=== PATIENT | male | born 1950 | race Caucasian/White ===

== ENCOUNTER 2019-06-26 11:13 | Inpatient (IN) | payer BC, OTHER, SELFPAY ==
[~2019-06-26] VITALS: Ht 172.7 cm; Wt 94.9 kg
[2019-06-26 11:30] VITALS: Ht 172.7 cm; Wt 94.9 kg
[2019-06-26 12:14] LABS: BASOPHIL % 0.3 % (0-2); PLATELET COUNT 217 x10^3mcL (130-400); RED CELL DISTRIBUTION WIDTH 13.2 % (11.5-14.5)
[2019-06-26 12:21] LABS: ALBUMIN 3.9 g/dL (3.4-5.0); ALKALINE PHOSPHATASE 88 U/L (46-116); ALT/SGPT 52 U/L (16-63); AST/SGOT 39 U/L (15-37); BILIRUBIN TOTAL 0.6 mg/dL (0.20-1.00); C REACTIVE PROTEIN 0.4 mg/dL (<=0.9); CALCIUM 8.6 mg/dL (8.5-10.1); CARBON DIOXIDE 33.5 mmol/L (21-32); CHLORIDE SERUM 104 mmol/L (98-107); CREATININE SERUM 0.9 mg/dL (0.7-1.3); GFR1 > 60 mL/min; GLUCOSE SERUM 113 mg/dL (74-106); LACTIC DEHYDROGENASE (LDH) 226 U/L (100-190); SODIUM SERUM 143 mmol/L (136-145); TOTAL PROTEIN, SERUM 6.5 g/dL (6.4-8.2)
[2019-06-26 12:25] LABS: POTASSIUM SERUM 2.9 mmol/L (3.5-5.1)
[2019-06-26 13:36] VITALS: BP 138/81
[2019-06-26 13:53] LABS: microscopic required? NO
[2019-06-26] MEDS ORDERED: AMLODIPINE BESYL5 M2 PO (13:56)
[2019-06-26] MEDS ORDERED: ATORVASTATIN CA20 M1 GT (13:58)
[2019-06-26] MEDS ORDERED: ASPIR 8181 MG PO (13:58)
[2019-06-26] MEDS ORDERED: ALLERGY RELIE15.8 ML (14:00)
[2019-06-26 14:05] LABS: UA SPECIFIC GRAVITY 1.015 (1.005-1.035); urine erythrocyte NEGATIVE (NEGATIVE)
[2019-06-26 14:19] LABS: MAGNESIUM 2.4 mg/dL (1.8-2.4); PHOSPHOROUS 2.8 mg/dL (2.5-4.9)
[2019-06-26 14:25] LABS: CHOLESTEROL/HDL RATIO 4.9
[2019-06-26 15:01] VITALS: BP 138/75
[2019-06-26 17:32] VITALS: BP 133/72
[2019-06-26 21:01] VITALS: BP 129/78
[2019-06-27 06:30] VITALS: BP 131/78
[2019-06-27 07:07] LABS: BASOPHIL % 0.3 % (0-2); PLATELET COUNT 182 x10^3mcL (130-400); RED CELL DISTRIBUTION WIDTH 13.2 % (11.5-14.5)
[2019-06-27 08:14] VITALS: BP 122/71
[2019-06-27 08:20] LABS: CALCIUM 8.1 mg/dL (8.5-10.1); CARBON DIOXIDE 28.9 mmol/L (21-32); CHLORIDE SERUM 105 mmol/L (98-107); CREATININE SERUM 0.8 mg/dL (0.7-1.3); GFR1 > 60 mL/min; GLUCOSE SERUM 113 mg/dL (74-106); POTASSIUM SERUM 3.1 mmol/L (3.5-5.1); SODIUM SERUM 144 mmol/L (136-145)
[2019-06-27 12:56] VITALS: BP 132/84
[2019-06-27 17:43] VITALS: BP 135/67
[2019-06-27 20:40] VITALS: BP 145/88
[2019-06-28 06:20] VITALS: BP 138/85
[2019-06-28 07:21] LABS: CALCIUM 8.1 mg/dL (8.5-10.1); CARBON DIOXIDE 28.4 mmol/L (21-32); CHLORIDE SERUM 107 mmol/L (98-107); CREATININE SERUM 0.9 mg/dL (0.7-1.3); GFR1 > 60 mL/min; GLUCOSE SERUM 120 mg/dL (74-106); POTASSIUM SERUM 3.1 mmol/L (3.5-5.1); SODIUM SERUM 143 mmol/L (136-145)
[2019-06-28 07:23] LABS: BASOPHIL % 0.3 % (0-2); PLATELET COUNT 190 x10^3mcL (130-400); RED CELL DISTRIBUTION WIDTH 13.2 % (11.5-14.5)
[2019-06-28 08:27] VITALS: BP 128/88
[2019-06-28 17:01] VITALS: BP 129/87
[2019-06-28 20:03] VITALS: BP 133/83
[2019-06-29 05:21] VITALS: BP 128/80
[2019-06-29 06:40] LABS: BASOPHIL % 0.3 % (0-2); PLATELET COUNT 192 x10^3mcL (130-400); RED CELL DISTRIBUTION WIDTH 12.7 % (11.5-14.5)
[2019-06-29 07:22] LABS: CALCIUM 8.4 mg/dL (8.5-10.1); CARBON DIOXIDE 27.7 mmol/L (21-32); CHLORIDE SERUM 106 mmol/L (98-107); CREATININE SERUM 0.9 mg/dL (0.7-1.3); GFR1 > 60 mL/min; GLUCOSE SERUM 115 mg/dL (74-106); POTASSIUM SERUM 3.8 mmol/L (3.5-5.1); SODIUM SERUM 141 mmol/L (136-145)
[2019-06-29 08:20] VITALS: BP 144/91
[2019-06-29 10:36] VITALS: BP 144/91
== END 2019-06-29 11:22 | disposition home or self-care (01) | DRG 293 ==
LOC: ED 11:13 → DU 13:15 → MU 06-29 06:35
PROVIDERS: Specialist; ADMIT Family Medicine
DX: I11.0 Hypertensive heart disease with heart failure (principal); E78.00 Pure hypercholesterolemia, unspecified; E87.6 Hypokalemia; E78.5 Hyperlipidemia, unspecified; Z20.828 Contact with and (suspected) exposure to other viral communicable diseases; I50.9 Heart failure, unspecified
CPT/HCPCS: 36600; 83880; 85378; 87804; G0378; J3475; J3480; J7050; Q0092; Q9967